=== PATIENT | female | born 1965 | race Caucasian/White ===

== ENCOUNTER 2021-06-29 16:21 | Emergency (ER) | payer OTHER ==
[2021-06-29] MEDS ORDERED: MEDROL 4MG DOSEP4 MG PO (20:53)
[2021-06-29] MEDS ORDERED: CYCLOBENZAPRINE10 MG PO (20:53)
== END 2021-06-29 21:08 | disposition home or self-care (01) ==
LOC: FER 16:21
DX: S13.4XXA Sprain of ligaments of cervical spine, initial encounter (principal); S23.3XXA Sprain of ligaments of thoracic spine, initial encounter; S33.5XXA Sprain of ligaments of lumbar spine, initial encounter; V49.40XA Driver injured in collision with unspecified motor vehicles in traffic accident, initial encounter; Y92.410 Unspecified street and highway as the place of occurrence of the external cause
CPT/HCPCS: 72125; 72128; 72131; 73020; 96372; J1100; J1885

== ENCOUNTER 2022-01-16 15:41 | Emergency (ER) | payer OTHER ==
[~2022-01-16 15:41] MED LIST: CYCLOBENZAPRINE10 MG PO; MEDROL 4MG DOSEP4 MG PO
== END 2022-01-16 18:15 | disposition home or self-care (01) ==
LOC: FER 15:41
DX: S39.012A Strain of muscle, fascia and tendon of lower back, initial encounter (principal); Z28.310 Unvaccinated for COVID-19; W19.XXXA Unspecified fall, initial encounter
CPT/HCPCS: J1100